=== PATIENT | female | born 1975 | race Caucasian/White ===

== ENCOUNTER 2024-11-14 17:58 | Observation (INO) | payer OTHER ==
--- NOTE | 2024-11-14 19:48 | ED ---
General Adult HPI - General Chief complaint: Overdose Stated complaint: Mental Health Eval. Time Seen by Provider: 11/14/24 19:15 Source: patient Mode of arrival: EMS - History of Present Illness Initial comments: Patient is a 48-year-old female with past medical history of depression presenting today for intentional overdose. She says that she had a stressful day today and just wanted to sleep took "a handful" of 25 mg hydroxyzine tablets as well as a handful of ketorolac tablets. Has additional coingestions such as Tylenol or [place]. Also drank 1/2 pint of vodka earlier today. She does have history of prior suicide attempts. She denies HI, auditory or visual hallucin ations. Denies dizziness or lightheadedness, headaches, numbness or tingling, abdominal pain nausea or vomiting. Denies chest pain or shortness of breath. Currently denies additional complaints. - Related Data Home Medications Medication Instructions Recorded Confirmed Atorvastatin [Lipitor] 20 mg PO DAILY 11/15/24 11/15/24 Multivit with Calcium,Iron,Min 1 tab PO DAILY 11/15/24 11/15/24 [Women's Multivitamin] Sertraline [Zoloft] 50 mg PO DAILY 11/15/24 11/15/24 traZODone HCL 100 mg PO HS PRN 11/15/24 11/15/24 Allergies Allergy/AdvReac Type Severity Reaction Status Date / Time No Known Allergies Allergy Verified 11/15/24 18:13 Review of Systems ROS Statement: Those systems with pertinent positive or pertinent negative responses have been documented in the HPI. ROS Other: All systems not noted in ROS Statement are negative. Past Medical History Additional Past Medical History / Comment(s): immunocompromised History of Any Multi-Drug Resistant Organisms: None Reported Past Surgical History: Appendectomy, Section, Hysterectomy Past Psychological History: ADD/ADHD Smoking Status: Current every day smoker Past Alcohol Use History: Daily, Heavy Past Drug Use History: Marijuana General Exam - General Exam Comments Initial Comments: PE: CONSTITUTIONAL: No apparent distress, well appearing SKIN: Warm, dry, no jaundice, hives or petechiae EYES: Pupils are equally round, extraocular movements intact without nystagmus, clear conjunctiva, non-icteric sclera HENT: Normocephalic, atraumatic, moist mucus membranes, oropharynx clear without exudates NECK: , Full range of motion, normal appearance PULMONARY: Clear to auscultation without wheezes, rhonchi, or rales, normal excursion, no accessory muscle use and no stridor CARDIOVASCULAR: Regular rate, rhythm, normal S1 and S2. No appreciated murmurs, rubs or gallops. Strong radial pulses with intact distal perfusion. No lower extremity edema GASTROINTESTINAL: Soft, active bowel sounds throughout, non-tender, non-d istended, no palpable masses, no rebound or guarding. No hepatosplenomegaly MUSCULOSKELETAL: Extremities have no gross deformity, no edema, redness, or swelling. NEUROLOGIC:_a/o x 3, GCS 15, normal mentation and speech. Moves all extremities x 4 without motor or sensory deficit, no clonus or rigidity PSYCHIATRIC:_withdrawn mood and affect, thought process is clear and linear, denies SI/HI, states she "just wanted to sleep", does not appear to be responding to internal stimuli Course Vital Signs 11/14/24 11/14/24 11/14/24 18:02 18:09 19:48 Temperature 98.4 F 97.8 F Pulse Rate 84 107 H 76 Respiratory 16 15 18 Rate Blood Pressure 148/89 137/87 145/97 O2 Sat by Pulse 96 98 99 Oximetry 11/14/24 11/15/24 11/15/24 23:23 04:53 06:00 Temperature Pulse Rate 82 66 61 Respiratory 17 17 15 Rate Blood Pressure 121/66 133/64 O2 Sat by Pulse 96 97 98 Oximetry EKG Findings - EKG Comments: EKG Findings:: Sinus rhythm, rate of beats per minute, intervals within acceptable limits, normal axis, no ST elevations or depressions, no arrhythmia Medical Decision Making - Medical Decision Making Was pt. sent in by a medical professional or institution (, PA, [employer]AR[employer], urgent care, hospital, or group home...) When possible be specific @ -[No] Did you speak to anyone other than the patient for history (EMS, parent, family, police, friend...)? What history was obtained from this source @ -[No] Did you review nursing and triage notes (agree or disagree)? Why? @ -[I reviewed nursing and triage notes] Were old charts reviewed (outside hosp., previous admission, EMS record, old EKG, old radiological studies, urgent care reports/EKG's, group home records)? Report findings @ -[Medical records reviewed] Differential Diagnosis (chest pain, altered mental status, abdominal pain women, abdominal pain men, vaginal bleeding, weakness, fever, dyspnea, syncope, headache, dizziness, GI bleed, back pain, seizure, CVA, palpatations, mental health, musculoskeletal)? @ -[not applicable] EKG interpreted by me (3pts min.). @ -[As above] X-rays interpreted by me (1pt min.). @ -[None done] CT interpreted by me (1pt min.). @ -[None done] U/S interpreted by me (1pt. min.). @ -[None done] What testing was considered but not performed or refused? (CT, X-rays, U/S, labs)? Why? @ -[None] What meds were considered but not given or refused? Why? @ -[None] Did you discuss the management of the patient with other professionals (professionals i.e. , PA, [employer]AR[employer]DEL MAKER, lab, RT, psych nurse, social insurance administrator, bench carpenter, teacher, administrative officer, case planner)? Give summary @ -[No] Was smoking cessation discussed for >3mins.? @ -[No] Was critical care preformed (if so, how long)? @ -[No] Were there social determinants of health that impacted care today? How? (Homelessness, low income, unemployed, alcoholism, drug addiction, transportation, low edu. Level, literacy, decrease access to med. care, prison, rehab)? @ -[No] Was there de-escalation of care discussed even if they declined (Discuss DNR or withdrawal of care, Hospice)? @ -[No] What co-morbidities impacted this encounter? (DM, HTN, Smoking, COPD, CAD, Cancer, CVA, ARF, Chemo, Hep., AIDS, mental health diagnosis, sleep apnea, morbid obesity)? @ -[None] Was patient admitted / discharged? Hospital course, mention meds given and route, prescriptions, significant lab abnormalities, going to OR and other pertinent info. @Admission- patient is a 48-year-old female presenting today for intentional medication overdose. Took a "handful" of 25 mg hydroxyzine, ketorolac. Drink half pint of vodka prior to arrival. Stating she just wants to sleep. Denies SI or HI. We will medically clear the patient, obtain toxicology labs, EKG and reassess. Case was discussed with poison control, they recommended obtaining VBG in addition to the labs already ordered as well as an 8 to 10-hour observation period to ensure no development of anticholinergic toxicity. Additionally recommended a bladder scan to ensure no urinary retention. Labs and imaging reviewed. Grossly within normal limits. Abnormal values not concerning for acute pathology related to presenting complaint. Of note potassium was 3.1. Replacement ordered. Postvoid bladder scan showed 21 cc in the bladder. On my reassessment patient is not displaying signs of anticholinergic toxicity, she is awake and alert, pupils are not dilated, she is behaving appropriately. She had no clonus on exam. Discussed with patient plan for admission for observation, to which she was agreeable. Suicide precautions placed. Psychiatry consulted. Case was discussed with RAMIN Mcnally who kindly excepted patient for admission. Undiagnosed new problem with uncertain prognosis? @ -[No] Drug Therapy requiring intensive monitoring for toxicity (Heparin, Nitro, Insulin, Cardizem)? @ -[No] Were any procedures done? @ -[No] Diagnosis/symptom? @Intentional medication overdose Acute, or Chronic, or Acute on Chronic? @Acute Uncomplicated (without systemic symptoms) or Complicated (systemic symptoms)? @ -Complicated Side effects of treatment? @ -[No] Exacerbation, Progression, or Severe Exacerbation? @ -[No] Poses a threat to life or bodily function? How? (Chest pain, USA, NM, pneumonia, PE, COPD, DKA, ARF, appy, cholecystitis, CVA, Diverticulitis, Homicidal, Suicidal, threat to staff... and all critical care pts) @ -Yes - Lab Data Result diagrams: 11/14/24 20:41 11/15/24 06:39 Lab Results 11/14/24 11/14/24 11/14/24 Range/Units 20:41 20:41 21:21 WBC 7.57 (4.50-10.00) 10*3/uL RBC 4.41 (4.10-5.20) 10*6/uL Hgb 14.5 (12.0-15.0) g/dL Hct 40.3 (37.2-46.3) % MCV 91.4 (80.0-97.0) fL MCH 32.9 H (27.0-32.0) pg MCHC 36.0 (32.0-37.0) g/dL Plt Count 329 (140-440) 10*3/uL MPV 9.0 L (9.5-12.2) fL Immature Gran % (Auto) 0.3 % Neutrophils % 46.2 % Lymphocytes % 43.3 % Monocytes % 7.9 % Eosinophils % 1.8 % Basophils % 0.5 % Immature Gran # 0.02 (0.00-0.04) 10*3/uL Neutrophils # 3.49 (1.80-7.70) 10*3/uL Lymphocytes # 3.28 (0.90-5.00) 10*3/uL Monocytes # 0.60 (0.20-1.00) 10*3/uL Eosinophils # 0.14 (0.04-0.35) 10*3/uL Basophils # 0.04 (0.00-0.10) 10*3/uL VBG pH (7.31-7.41) VBG pCO2 (37-51) mmHg VBG HCO3 (24-28) mmol/L Sodium 137 (137-145) mmol/L Potassium 3.1 L (3.5-5.1) mmol/L Chloride 109 H (98-107) mmol/L Carbon Dioxide 17 L (22-30) mmol/L Anion Gap 11 mmol/L BUN 7 (7-17) mg/dL Creatinine 0.51 L (0.52-1.04) mg/dL Est GFR (CKD-EPI)AfAm >90 (>60 ml/min/1.73 sqM) Est GFR (CKD-EPI)NonAf >90 (>60 ml/min/1.73 sqM) Glucose 90 (74-99) mg/dL Calcium 8.5 (8.4-10.2) mg/dL Total Bilirubin 0.7 (0.2-1.3) mg/dL AST 28 (14-36) U/L ALT 15 (4-34) U/L Alkaline Phosphatase 89 (38-126) U/L Total Protein 6.3 (6.3-8.2) g/dL Albumin 3.6 (3.5-5.0) g/dL Urine Color Colorless Urine Appearance Clear (Clear) Urine pH 6.0 (5.0-8.0) Ur Specific [place] 1.004 (1.001-1.035) Urine Protein Negative (Negative) Urine Glucose (UA) Negative (Negative) Urine Ketones Negative (Negative) Urine Blood Negative (Negative) Urine Nitrite Negative (Negative) Urine Bilirubin Negative (Negative) Urine Urobilinogen <2.0 (<2.0) mg/dL Ur Leukocyte Esterase Negative (Negative) Urine HCG, Qual (Not Detectd) Salicylates <1.0 mg/dL Urine Opiates Screen Not Detected (NotDetected) Ur Oxycodone Screen Not Detected (NotDetected) Urine Methadone Screen Not Detected (NotDetected) Acetaminophen <10.0 ug/mL Ur Barbiturates Screen Not Detected (NotDetected) U Tricyclic Antidepress Not Detected (NotDetected) Ur Phencyclidine Scrn Not Detected (NotDetected) Ur Amphetamines Screen Not Detected (NotDetected) U Methamphetamines Scrn Not Detected (NotDetected) U Benzodiazepines Scrn Not Detected (NotDetected) Urine Cocaine Screen Not Detected (NotDetected) U Marijuana (THC) Screen Detected H (NotDetected) Serum Alcohol 21 mg/dL 11/14/24 11/14/24 Range/Units 21:21 21:28 WBC (4.50-10.00) 10*3/uL RBC (4.10-5.20) 10*6/uL Hgb (12.0-15.0) g/dL Hct (37.2-46.3) % MCV (80.0-97.0) fL MCH (27.0-32.0) pg MCHC (32.0-37.0) g/dL Plt Count (140-440) 10*3/uL MPV (9.5-12.2) fL Immature Gran % (Auto) % Neutrophils % % Lymphocytes % % Monocytes % % Eosinophils % % Basophils % % Immature Gran # (0.00-0.04) 10*3/uL Neutrophils # (1.80-7.70) 10*3/uL Lymphocytes # (0.90-5.00) 10*3/uL Monocytes # (0.20-1.00) 10*3/uL Eosinophils # (0.04-0.35) 10*3/uL Basophils # (0.00-0.10) 10*3/uL VBG pH 7.48 H (7.31-7.41) VBG pCO2 31 L (37-51) mmHg VBG HCO3 23 L (24-28) mmol/L Sodium (137-145) mmol/L Potassium (3.5-5.1) mmol/L Chloride (98-107) mmol/L Carbon Dioxide (22-30) mmol/L Anion Gap mmol/L BUN (7-17) mg/dL Creatinine (0.52-1.04) mg/dL Est GFR (CKD-EPI)AfAm (>60 ml/min/1.73 sqM) Est GFR (CKD-EPI)NonAf (>60 ml/min/1.73 sqM) Glucose (74-99) mg/dL Calcium (8.4-10.2) mg/dL Total Bilirubin (0.2-1.3) mg/dL AST (14-36) U/L ALT (4-34) U/L Alkaline Phosphatase (38-126) U/L Total Protein (6.3-8.2) g/dL Albumin (3.5-5.0) g/dL Urine Color Urine Appearance (Clear) Urine pH (5.0-8.0) Ur Specific [place] (1.001-1.035) Urine Protein (Negative) Urine Glucose (UA) (Negative) Urine Ketones (Negative) Urine Blood (Negative) Urine Nitrite (Negative) Urine Bilirubin (Negative) Urine Urobilinogen (<2.0) mg/dL Ur Leukocyte Esterase (Negative) Urine HCG, Qual Not Detected (Not Detectd) Salicylates mg/dL Urine Opiates Screen (NotDetected) Ur Oxycodone Screen (NotDetected) Urine Methadone Screen (NotDetected) Acetaminophen ug/mL Ur Barbiturates Screen (NotDetected) U Tricyclic Antidepress (NotDetected) Ur Phencyclidine Scrn (NotDetected) Ur Amphetamines Screen (NotDetected) U Methamphetamines Scrn (NotDetected) U Benzodiazepines Scrn (NotDetected) Urine Cocaine Screen (NotDetected) U Marijuana (THC) Screen (NotDetected) Serum Alcohol mg/dL Disposition Clinical Impression: Intentional drug overdose Disposition: ADMITTED IP TO THIS HOSP Condition: Stable
[2024-11-14 20:47] LABS: Basophils # (A) 0.04 10*3/uL (0.00-0.10); Basophils % (A) 0.5 %; Eosinophils # (A) 0.14 10*3/uL (0.04-0.35); Eosinophils % (A) 1.8 %; HCT 40.3 % (37.2-46.3); HGB 14.5 g/dL (12.0-15.0); Lymphocytes # (A) 3.28 10*3/uL (0.90-5.00); Lymphocytes % (A) 43.3 %; MCH 32.9 pg (27.0-32.0); MCV 91.4 fL (80.0-97.0); Monocytes % (A) 7.9 %; Neutrophils # (A) 3.49 10*3/uL (1.80-7.70); Neutrophils % (A) 46.2 %; Platelet Count 329 10*3/uL (140-440); RBC 4.41 10*6/uL (4.10-5.20); RDW 12.4 % (11.5-14.5); WBC 7.57 10*3/uL (4.50-10.00)
[2024-11-14 21:07] LABS: ALT 15 U/L (4-34); Acetaminophen <10.0 ug/mL; African American GFR (CKD) >90 (>60 ml/min/1.73 sqM); Albumin 3.6 g/dL (3.5-5.0); Alcohol 21 mg/dL; Anion Gap 11 mmol/L; Blood Urea Nitrogen 7 mg/dL (7-17); Calcium 8.5 mg/dL (8.4-10.2); Carbon Dioxide 17 mmol/L (22-30); Chloride 109 mmol/L (98-107); Glucose 90 mg/dL (74-99); Non-African American GFR(CKD) >90 (>60 ml/min/1.73 sqM); Salicylate <1.0 mg/dL; Sodium 137 mmol/L (137-145); Total Bilirubin 0.7 mg/dL (0.2-1.3); Total Protein 6.3 g/dL (6.3-8.2)
[2024-11-14 21:14] LABS: AST 28 U/L (14-36); Alkaline Phosphatase 89 U/L (38-126); Potassium 3.1 mmol/L (3.5-5.1)
[2024-11-14 21:35] LABS: Appearance,Urine Clear (Clear); Bilirubin,Urine Negative (Negative); Blood,Urine Negative (Negative); Color,Urine Colorless; Glucose,Urine (UA) Negative (Negative); Ketones,Urine Negative (Negative); Leukocyte Esterase,Urine Negative (Negative); Nitrite,Urine Negative (Negative); Protein,Urine Negative (Negative); Specific Gravity,Urine 1.004 (1.001-1.035); Urobilinogen,Urine <2.0 mg/dL (<2.0)
[2024-11-14 21:46] LABS: Amphetamine Screen,Urine Not Detected (NotDetected); Barbiturate Screen,Urine Not Detected (NotDetected); Benzodiazepines Screen,Urine Not Detected (NotDetected); Cocaine Screen,Urine Not Detected (NotDetected); Methadone Screen, Urine Not Detected (NotDetected); Opiate Screen,Urine Not Detected (NotDetected); Oxycodone Screen, Urine Not Detected (NotDetected); Phencyclidine Screen,Urine Not Detected (NotDetected); Tricyclic Antidepressant,Urine Not Detected (NotDetected); Urn Cannabinoid Scrn Detected (NotDetected)
[2024-11-14 21:55] LABS: VBG PH 7.48 (7.31-7.41)
[2024-11-14] MEDS ORDERED: NALOXONE 0.4 MG/ML 1 ML VIAL IV PRN (22:23)
[2024-11-14] MEDS ORDERED: ALPRAZolam 0.25 MG TAB PO PRN (22:23)
[2024-11-14] MEDS ORDERED: MAG HYDROX/AL HYDROX/SIMETH 30 ML CUP PO PRN (22:23)
[2024-11-14] MEDS ORDERED: ACETAMINOPHEN TAB 325 MG TAB PO PRN (22:23)
[2024-11-14] MEDS ORDERED: CALCIUM CARBONATE 500 MG CHEWABLE PO PRN (22:23)
[2024-11-14] MEDS: THIAMINE 100 MG/ML 2 ML VIAL IVP SCH (23:26)
[2024-11-14] MEDS: POTASSIUM BICARBONATE/CIT AC 20 MEQ TABLET.EFF PO ONE (23:28)
[2024-11-14 23:36] LABS: Glucose,Whole Blood 139 mg/dL (70-110)
[2024-11-15] MEDS: ENOXAPARIN 40 MG/0.4 ML SYRINGE SQ SCH (08:41)
[2024-11-15] MEDS: FAMOTIDINE 20 MG TAB PO SCH (08:41)
[2024-11-15] MEDS: THIAMINE 500 MG in SODIUM CHLORIDE 0.9% 50 ML IVPB SCH (09:08)
[2024-11-15 09:19] VITALS: RESP 16; TEMP 98
[2024-11-15 11:54] VITALS: BP 122/73; PULSE 63
--- NOTE | 2024-11-15 14:12 | P.CN ---
Psychiatric Consult - . Consult date: 11/15/24 Consult:: 11/15/24 13:25 IDENTIFYING DATA: This patient is a 48-year-old female, she is currently engaged she lives with her fianc in a motel, she has 2 kids, she is unemployed REASON FOR REFERRAL: Psychiatry was consulted for SI HISTORY OF PRESENT ILLNESS: The patient presented to the hospital initially on 11/14 after an intentional overdose. Patient apparently has a history of mental health and also previous suicide attempts. Patient apparently told staff that she took a handful of her hydroxyzine and Toradol and also was drinking alcohol. Patient's urine drug screen is positive for THC, blood alcohol level was 21. Patient was seen at the bedside today she had a one-to-one sitter. She claims that she apparently "had too much to drink" and states that she was feeling drunk. Claims that she took a handful of her anxiety medications and was not "paying attention". Claims that she is also drinking about a pint of liquor at that time. She claims that her boyfriend was concerned about her and called the EMS to bring her to the hospital. She claims that she has been having more stress lately dealing with the court transcriber for custody issues and also the fact that she is homeless. Claims that she relapsed on alcohol a couple of days ago, not reporting any significant withdrawal symptoms at this time. She was minimizing the suicide attempt and minimizing her need for psychiatric hospitalization, was insisting that she be discharged back home. At this time patient denies any current suicidal or homical ideations, intent or plan. Patient denies any auditory, visual hallucinations and denies any paranoia or delusions. Patients admits to using alcohol as noted above, claims that she smokes THC from a vape, also smokes cigarettes. PAST PSYCHIATRIC HISTORY: Patient has a a history of depression and suicide attempts. Claims that she was previously on trazodone and Vistaril, used to follow-up at [facility] however claims that her case has been closed out and she is trying to transfer to the [facility]. Claims that she was last psychiatrically admitted and July 2024 in the hospital in [place]. Claims that she did have a overdose suicide attempt quite sometime ago. Additional Past Medical History / Comment(s): immunocompromised History of Any Multi-Drug Resistant Organisms: None Reported Past Surgical History: Appendectomy, Section, Hysterectomy Past Psychological History: ADD/ADHD Smoking Status: Current every day smoker Past Alcohol Use History: Daily, Heavy Past Drug Use History: Marijuana ALLERGIES: as per EMR. CHEMICAL DEPENDENCY HISTORY: as per HPI. FAMILY PSYCHIATRIC/SUBSTANCE USE HISTORY: Denies SOCIAL HISTORY: Patient was born and raised in [place]. Claims that she completed high school and did some college. States that she worked several jobs in the past. Currently unemployed. Claims that she is currently engaged lives with her fianc in a motel, she has 2 kids. MENTAL STATUS EXAM: General Appearance: Patient appears to be older than stated age is alert, pleasant however minimizing and deceptive. Patient appears to have fair hygiene and grooming wearing hospital gown with fair eye contact. Behavior: Patient is calmly lying in bed without any agitated behavior. Minimizing, guarded Speech: Patient's speech is fluent and nonpressured. Mood/Affect: Patient reports their mood is "depressed", affect is congruent Suicidality/Homicidality: Patient denies having any suicidal or homicidal ideation intent or plan. Perceptions: Patient denies any visual hallucinations and denies any auditory hallucinations Though content/process: There is no evidence of any delusional thought content and thought process is linear and goal-directed. Minimizing, focused on discharge, deceptive Memory and concentration: AOX3, grossly intact for the purposes of this session. Can spell "WORLD" backwards Judgment and insight: Poor IMPRESSIONS: Depressive disorder unspecified Suicide attempt by overdose of psychotropic medications Alcohol abuse Cannabis use disorder Nicotine dependence PLAN: -At this time patient DOES meet criteria for inpatient psychiatric admission. -Would recommend the following medication changes/additions: Will hold off on psychiatric medications until patient is admitted to the mental health unit. -CIWA protocol with PRN Ativan for alcohol withdrawal. Continue to monitor vital signs. -Continue 1:1 sitter for safety until patient is safely transferred to the mental health unit -Cannot leave AMA at this time. Patient will need a petition and certification if attempting to leave AMA. -Cooling Pan Tender spoke with patient about substance abuse and the harmful effects on medical and mental health, patient verbally understood and agreed. -When medically stable, patient is eligible for transfer to a psych bed when available. -Communicated plan to patient's nurse -Psychiatry will sign off at this time -Please contact with any questions. 11/15/24 14:06
--- NOTE | 2024-11-16 01:04 | HP ---
HISTORY AND PHYSICAL This is a combined history and physical and discharge summary. CHIEF COMPLAINT: Overdose and depression. HISTORY OF PRESENT ILLNESS: This is a 48-year-old woman with a past medical history of multiple medical problems including depression, had intentional overdoses. The patient felt dizzy, once asleep and the patient has taken a handful of hydroxyzine and Toradol. Currently, the patient is closely monitored. No chest pain. No palpitations. No fever. I would recommend psychiatric consultation if psychiatry is cleared. The patient will be transferred to inpatient psych for further evaluation and treatment. PAST MEDICAL HISTORY: Reviewed include immunosuppression, appendectomy, ADD, ADHD. HOME MEDICATIONS: Reviewed include Lipitor. Dose and rest of medications reviewed. ALLERGIES: None. FAMILY HISTORY: No history of heart disease or strokes in the family. SOCIAL HISTORY: No history of alcohol, THC, smoking. REVIEW OF SYSTEMS: Fourteen-point review of systems negative except as mentioned earlier. PHYSICAL EXAMINATION: Pulse is 69, blood pressure 147/82, respirations 16. HEENT: Conjunctivae normal. Oral mucosa moist. NECK: No jugular venous distention. No carotid bruit. CARDIOVASCULAR: S1, S2 muffled. RESPIRATION: Breath sounds diminished at the bases. No rhonchi. No crackles. ABDOMEN: Soft, nontender. LEGS: No edema. No swelling. NERVOUS SYSTEM: No focal deficit. LABORATORY DATA: Potassium 3.1, CO2 is 17. Otherwise, the labs are noted. ASSESSMENT: 1. Status post overdosage and suicidal attempt. 2. Depression. 3. History of nicotine dependence. 4. History of polysubstance abuse. 5. Immunosuppression. 6. Hyperlipidemia. 7. Hypokalemia. RECOMMENDATIONS AND DISCUSSION: This is a 48-year-old woman, who presented with multiple complex medical issues. We will monitor the patient closely. I would recommend resume the home medications. I will also recommend repeat labs in the morning. CIWA protocol p.r.n. for alcohol withdrawal and recommend close followup with primary physician after discharge. This patient will be transferred to inpatient psych for further evaluation and treatment. MMKEYANAL / SERGION: [id number] /
== END 2024-11-15 17:07 ==
LOC: EC 17:58 → 5NMEDONC 22:23
PROVIDERS: ADMIT Hospitalist; ATTEND Hospitalist
DX: T43.592A Poisoning by other antipsychotics and neuroleptics, intentional self-harm, initial encounter (principal); T39.8X2A Poisoning by other nonopioid analgesics and antipyretics, not elsewhere classified, intentional self-harm, initial encounter; F32.A Depression, unspecified; E87.6 Hypokalemia; F10.90 Alcohol use, unspecified, uncomplicated; Y90.1 Blood alcohol level of 20-39 mg/100 ml; F12.10 Cannabis abuse, uncomplicated; D84.9 Immunodeficiency, unspecified; E78.5 Hyperlipidemia, unspecified; F17.210 Nicotine dependence, cigarettes, uncomplicated; Z79.899 Other long term (current) drug therapy; Z74.3 Need for continuous supervision; Z91.51 Personal history of suicidal behavior; Z56.0 Unemployment, unspecified; Z59.01 Sheltered homelessness
CPT/HCPCS: 96372; 82075; 96374; 99285; 51798; 36415; 93005 ×2; 80053; 82803; 84132; 85025; 81003; 81025; 80306; 80143; 87635; 80179; G0378 ×2; G0480; J3411 ×2; J1650; 80320

== ENCOUNTER 2024-11-15 16:26 | Inpatient (IN) | payer MEDICAID, OTHER ==
[2024-11-15] MEDS ORDERED: IBUPROFEN 600 MG TAB PO PRN (16:32)
[2024-11-15] MEDS ORDERED: HALOPERIDOL LACTATE 5 MG/ML 1 ML VIAL IM PRN (16:32)
[2024-11-15] MEDS ORDERED: LORazepam 2 MG/ML INJ IM PRN (16:32)
[2024-11-15] MEDS ORDERED: MAG HYDROX/AL HYDROX/SIMETH 355 ML BOTTLE PO PRN (16:32)
[2024-11-15] MEDS ORDERED: MAGNESIUM HYDROXIDE 2,400 MG/30 ML CUP PO PRN (16:32)
[2024-11-15] MEDS: MELATONIN 5 MG TABLET PO PRN (21:13)
[2024-11-16 00:25] LABS: Glucose,Whole Blood 112 mg/dL (70-110)
[2024-11-16] MEDS: haloperidoL 5 MG TAB PO PRN (00:26)
[2024-11-16] MEDS: LORazepam 1 MG TAB PO PRN (00:26)
[2024-11-16] MEDS: MULTIVITAMINS, THERA 1 EACH TAB PO SCH (08:50)
[2024-11-16] MEDS: FOLIC ACID 1 MG TAB PO SCH (08:50)
[2024-11-16] MEDS: THIAMINE 100 MG TAB PO SCH (08:50)
[2024-11-16] MEDS: NICOTINE 14MG/24HR PATCH TRANSDERM SCH (08:51)
--- NOTE | 2024-11-16 13:30 | P.HP ---
Psychiatric H&P - . H&P Date: 11/16/24 History & Physical: Allergies Allergy/AdvReac Type Severity Reaction Status Date / Time No Known Allergies Allergy Verified 11/15/24 18:13 Vital Signs Temp 98.1 F 11/16/24 09:00 Pulse 75 11/16/24 09:00 Resp 16 11/16/24 09:00 BP 132/82 11/16/24 09:00 Pulse Ox 100 11/16/24 09:00 FiO2 Intake & Output 11/15/24 11/16/24 11/16/24 18:59 06:59 18:59 Weight 64.552 kg Laboratory Last Values POC Glucose (mg/dL) 112 mg/dL (70-110) H 11/16/24 00:15 POC Glu Ware[employer] Associate Driver ID Jerry Leone 11/16/24 00:15 TSH 0.662 mIU/L (0.465-4.680) 11/16/24 12:00 11/16/24 13:14 IDENTIFYING DATA: This patient is a 48-year-old female, she is currently engaged she lives with her fianc in a motel, she has 2 kids, she is unemployed HISTORY OF PRESENT ILLNESS: Patient was seen initially by life insurance underwriter for psychiatric consultation on 11/15 and as per note "the patient presented to the hospital initially on 11/14 after an intentional overdose. Patient apparently has a history of mental health and also previous suicide attempts. Patient apparently told staff that she took a handful of her hydroxyzine and Toradol and also was drinking alcohol. Patient's urine drug screen is positive for THC, blood alcohol level was 21. Patient was seen at the bedside today she had a one-to-one sitter. She claims that she apparently "had too much to drink" and states that she was feeling drunk. Claims that she took a handful of her anxiety medications and was not "paying attention". Claims that she is also drinking about a pint of liquor at that time. She claims that her boyfriend was concerned about her and called the EMS to bring her to the hospital. She claims that she has been having more stress lately dealing with the court recording monitor for custody issues and also the fact that she is homeless. Claims that she relapsed on alcohol a couple of days ago, not reporting any significant withdrawal symptoms at this time. She was minimizing the suicide attempt and minimizing her need for psychiatric hospitalization, was insisting that she be discharged back home. At this time patient denies any current suicidal or homical ideations, intent or plan. Patient denies any auditory, visual hallucinations and denies any paranoia or delusions. Patients admits to using alcohol as noted above, claims that she smokes THC from a vape, also smokes cigarettes." Patient was seen today for psychiatric evaluation on the unit. Patient continues to be fairly pleasant with life insurance underwriter, explains that it was a bad situation as she put herself into and he could have been deadly. Explains that she is agreeable to continuing with treatment signed voluntary. Claims that her mood and anxiety been improving since being on the unit, denying any severe withdrawal symptoms at this time. She was agreeable to try Zoloft and was previously on trazodone which has helped her. Claims that her sleep and appetite are on and off. At this time is denying any suicidal homicidal ideations intent or plan denying any auditory or visual hallucinations. The rest of the past psychiatric and social history been taking from the consultation note. PAST PSYCHIATRIC HISTORY: Patient has a a history of depression and suicide attempts. Claims that she was previously on trazodone and Vistaril, used to follow-up at [facility] however claims that her case has been closed out and she is trying to transfer to the [facility]. Claims that she was last psychiatrically admitted and July 2024 in the hospital in [place]. Claims that she did have a overdose suicide attempt quite sometime ago. Additional Past Medical History / Comment(s): immunocompromised History of Any Multi-Drug Resistant Organisms: None Reported Past Surgical History: Appendectomy, Section, Hysterectomy Past Psychological History: ADD/ADHD Smoking Status: Current every day smoker Past Alcohol Use History: Daily, Heavy Past Drug Use History: Marijuana ALLERGIES: as per EMR. CHEMICAL DEPENDENCY HISTORY: as per HPI. FAMILY PSYCHIATRIC/SUBSTANCE USE HISTORY: Denies SOCIAL HISTORY: Patient was born and raised in [place] [facility] [facility]. Claims that she completed high school and did some college. States that she worked several jobs in the past. Currently unemployed. Claims that she is currently engaged lives with her fianc in a motel, she has 2 kids. MENTAL STATUS EXAM: General Appearance: Patient appears to be older than stated age is alert, pleasant however minimizing and deceptive. Patient appears to have fair hygiene and grooming wearing hospital gown with fair eye contact. Behavior: Patient is calmly lying in bed without any agitated behavior. More pleasant today and attempts to cooperate Speech: Patient's speech is fluent and nonpressured. Mood/Affect: Patient reports their mood is "a bit better", affect is congruent Suicidality/Homicidality: Patient denies having any suicidal or homicidal ideation intent or plan. Perceptions: Patient denies any visual hallucinations and denies any auditory hallucinations Though content/process: There is no evidence of any delusional thought content and thought process is linear and goal-directed. Less minimizing today. Less focused on discharge Memory and concentration: AOX3, grossly intact for the purposes of this session. Can spell "WORLD" backwards Judgment and insight: Poor, improving mildly STRENGTHS/WEAKNESSES: strength is that patient is resilient. Weakness is that patient has poor judgment and is impulsive INTELLECT: Average IMPRESSIONS: Depressive disorder unspecified Suicide attempt by overdose of psychotropic medications Alcohol abuse Cannabis use disorder Nicotine dependence PLAN: -Patient is admitted under voluntary status to [facility] for stabilization of psychiatric symptoms and safety. Patient has signed adult voluntary form and has signed medication consent and is placed in patient's chart. -Medications : Zoloft 50 mg daily for mood/anxiety, trazodone 50 mg nightly for mood/insomnia. -Ativan and Haldol PRN for agitation/aggression -Started thiamine, MVM for etoh use -CIWA protocol with Ativan PRN for ETOH withdrawal. -Patient was counselled on substance abuse and desired to cut back on use. Will offer patient subtance use rehab -Patient was informed of the risks, benefits and side effects of the medications and patient verbally consented to taking the medications. Patient signed med consent form and was placed in chart. Patient was offered medication information and declined it -Internal Medicine consult to perform medical evaluation and physical. -NRT -nicotine patch -SW on board for discharge planning. Encourage patient to participate in groups to work on coping skills.
[2024-11-16] MEDS: SERTRALINE 50 MG TAB PO SCH (14:46)
[2024-11-16] MEDS: NICOTINE GUM (POLACRILEX) 2 MG GUM BUCCAL PRN (20:58)
[2024-11-16] MEDS: traZODone HCL 50 MG TAB PO SCH (20:58)
[2024-11-17 00:27] LABS: LDL Cholesterol,Calculated 101.2 mg/dL (0.0-131.0)
[2024-11-17 02:50] LABS: Glucose,Whole Blood 128 mg/dL (70-110)
[2024-11-17] MEDS: LORazepam 1 MG TAB PO PRN (02:54)
--- NOTE | 2024-11-17 12:33 | P.PN ---
Progress Note - Text Progress Note Date: 11/17/24 Interval history: Patient was seen today wandering the hallways agreeable to speak to parts data writer. She appears to be more appropriate today, more brighter during interaction. Claims that she is finding the groups helpful with regards to her alcohol use. Claims that she has been participating in sleep with others. Claims that she is feeling a bit better with regards to her mood and anxiety. She did state that she found it difficult to sleep last night and was feeling fairly restless, she required a Ativan to help her with sleep. Is stating that she has mild withdrawal symptoms at this time. Was agreeable to try Remeron instead for sleep tonight. She remains future oriented, fairly polite during interaction. At this time she is denying any suicidal homicidal ideations intent or plan denying any auditory or visual hallucinations. Mental status exam: General Appearance: Patient appears to be has stated age is alert, directable, and cooperative. Behavior: No agitated behavior. Patient is calm and directable Speech: Patient's speech is fluent and nonpressured. Mood/Affect: Mood is improving mildly, affect is congruent and constricted. Suicidality/Homicidality: Patient denies having any suicidal or homicidal ideation intent or plan. Perceptions: Patient denies any auditory or visual hallucinations. Though content/process: There is no evidence of any delusional thought content and thought process is linear and goal-directed. More future oriented Memory and concentration: AOX3, grossly intact for the purposes of this session Judgment and insight: improving mildly Assessment/Plan: Continue with current diagnosis. Patient continues to meet criteria for inpatient psychiatric admission for symptom stabilization and safety. Patient will be maintained on current psychotropic medication regimen, discontinue trazodone due to reported intolerance for replaced with Remeron 15 mg nightly. Monitor for medication compliance and for any psychotropic medication side effects. Will continue to monitor ongoing response to treatment. Encouraged participation in milieu. Hopeful for discharge Monday if patient is improving. Will offer rehab
[2024-11-17] MEDS ORDERED: LOPERAMIDE 2 MG CAP PO PRN (14:14)
[2024-11-17 15:44] LABS: Basophils # (A) 0.06 10*3/uL (0.00-0.10); Basophils % (A) 0.7 %; Eosinophils # (A) 0.15 10*3/uL (0.04-0.35); Eosinophils % (A) 1.8 %; HGB 13.8 g/dL (12.0-15.0); Lymphocytes # (A) 2.69 10*3/uL (0.90-5.00); Lymphocytes % (A) 31.7 %; MCH 32.9 pg (27.0-32.0); MCHC 34.5 g/dL (32.0-37.0); MCV 95.2 fL (80.0-97.0); Mean Platelet Volume 9.2 fL (9.5-12.2); Monocytes # (A) 0.65 10*3/uL (0.20-1.00); Monocytes % (A) 7.7 %; Neutrophils # (A) 4.91 10*3/uL (1.80-7.70); Neutrophils % (A) 57.9 %; Platelet Count 357 10*3/uL (140-440); RDW 12.5 % (11.5-14.5); WBC 8.48 10*3/uL (4.50-10.00)
[2024-11-17 15:58] LABS: African American GFR (CKD) >90 (>60 ml/min/1.73 sqM); Anion Gap 7 mmol/L; Blood Urea Nitrogen 12 mg/dL (7-17); Calcium 9.7 mg/dL (8.4-10.2); Carbon Dioxide 26 mmol/L (22-30); Chloride 104 mmol/L (98-107); Glucose 138 mg/dL (74-99); Non-African American GFR(CKD) >90 (>60 ml/min/1.73 sqM); Potassium 4.4 mmol/L (3.5-5.1); Sodium 137 mmol/L (137-145)
[2024-11-17] MEDS: MIRTAZAPINE 15 MG TAB PO SCH (20:57)
[2024-11-17] MEDS: ACETAMINOPHEN TAB 325 MG TAB PO PRN (20:58)
--- NOTE | 2024-11-18 03:00 | CONS ---
CONSULTATION REASON FOR CONSULTATION: The patient presents with diarrhea and other medical issues, requested by psychiatrist. HISTORY OF PRESENT ILLNESS: This is a 48-year-old woman with a past medical history of multiple medical problems admitted with overdose and depression, was evaluated by Psychiatry. The patient came in with diarrhea. The patient also has history of IBS. Diarrhea is three to four times a day, occasional loose according to her. There is no history of fever, rigors, chills. PAST MEDICAL HISTORY: Reviewed. History of IBS, depression, nicotine dependence, polysubstance abuse. MEDICATIONS: Trazodone. Dose and rest of medications reviewed. ALLERGIES: None. FAMILY HISTORY: No history of heart disease or strokes in the family. SOCIAL HISTORY: Alcohol heavy. THC. REVIEW OF SYSTEMS: Fourteen-point review of systems is negative except as mentioned earlier. PHYSICAL EXAMINATION: VITAL SIGNS: Pulse is 99, blood pressure 139/76, respirations 17. HEENT: Conjunctivae normal. NECK: No jugular venous distention. No carotid bruit. CARDIOVASCULAR: S1 and S2 muffled. RESPIRATION: Breath sounds diminished at the bases. ABDOMEN: Soft, nontender. LEGS: No edema. No swelling. NERVOUS SYSTEM: No focal deficit. LABS: Cholesterol 204. ASSESSMENT: 1. Depression with suicidal attempts. 2. Diarrhea, possibly irritable bowel syndrome exacerbation. 3. History of EtOH. 4. History of THC. 5. Polysubstance abuse. 6. Mild hyperlipidemia. 7. History of immunosuppression. 8. Hypokalemia. RECOMMENDATIONS: p.r.n. Imodium at this time. The patient is not getting better. Clostridium difficile may be checked. Otherwise, this caused minimally elevated cholesterol. Recommend low-cholesterol diet and closely follow with Primary Physician in the outpatient setting. We will follow the patient closely. MMODL / IJN: [id number] /
[2024-11-18 09:38] VITALS: RESP 16
--- NOTE | 2024-11-18 11:43 | P.PN ---
Progress Note - Text Progress Note Date: 11/18/24 Interval history: Patient was seen today wandering the hallways agreeable to speak to contract technical writer. She was seen participating in group. She appears to be more appropriate today during interactions she was pleasant, spoke about how she feels she is doing much better with regards to her mood and anxiety. Claims that she is hopeful to be discharged tomorrow, claims that she is grateful that she came to the hospital for treatment, likes the medications she is on at this time. Claims that she slept much better with the Remeron last night. States that she is going to groups participating in the milieu. Eating well, has been speaking her boyfriend over the phone. At this time she is denying any suicidal homicidal ideations intent or plan denying any auditory or visual hallucinations. Mental status exam: General Appearance: Patient appears to be has stated age is alert, directable, and cooperative. Behavior: No agitated behavior. Patient is calm and directable, more pleasant today Speech: Patient's speech is fluent and nonpressured. Mood/Affect: Mood is improving mildly, affect is congruent and constricted. Suicidality/Homicidality: Patient denies having any suicidal or homicidal ideation intent or plan. Perceptions: Patient denies any auditory or visual hallucinations. Though content/process: There is no evidence of any delusional thought content and thought process is linear and goal-directed. More future oriented Memory and concentration: AOX3, grossly intact for the purposes of this session Judgment and insight: improving mildly Assessment/Plan: Continue with current diagnosis. Patient continues to meet criteria for inpatient psychiatric admission for symptom stabilization and safety. Patient will be maintained on current psychotropic medication regimen, Monitor for medication compliance and for any psychotropic medication side effects. Will continue to monitor ongoing response to treatment. Encouraged participation in milieu. Hopeful for discharge tomorrow if patient is improving. At this time patient is declining rehab, wants to do outpatient fo llow-up and substance treatment through [facility].
[2024-11-18] MEDS: LORazepam 1 MG TAB PO PRN (17:22)
[2024-11-18] MEDS: MELATONIN 3 MG TABLET PO SCH (21:13)
[2024-11-19 08:41] VITALS: BP 144/64; PULSE 69; TEMP 97.8
--- NOTE | 2024-11-19 11:47 | P.DS ---
Providers Date of admission: 11/15/24 17:11 Expected date of discharge: 11/19/24 Attending physician: Chago Hanna MD Consults: 11/17/24 01:50 Consult Physician Routine Consulting Provider: [facility] Consult Reason/Comments: History and Physical, New Admission Do you want consulting provider notified?: Yes Primary care physician: Yahir Doan - Discharge Diagnosis(es) (1) Depressive disorder Current Visit: Yes Status: Acute Priority: High (2) Suicide attempt by other psychotropic drug overdose Current Visit: Yes Status: Acute Priority: High (3) Alcohol abuse Current Visit: Yes Status: Acute Priority: High (4) Cannabis use disorder Current Visit: Yes Status: Acute Priority: Medium (5) Nicotine dependence Current Visit: Yes Status: Acute Priority: Low Hospital Course: Admission HPI: Admission note was completed by [medical writer] "this patient is a 48-year-old Cauc female, she is currently engaged she lives with her fianc in a motel, she has 2 kids, she is unemployed. Patient was seen initially by medical writer for psychiatric consultation on 11/15 and as per note "the patient presented to the hospital initially on 11/14 after an intentional overdose. Patient apparently has a history of mental health and also previous suicide attempts. Patient apparently told staff that she took a handful of her hydroxyzine and Toradol and also was drinking alcohol. Patient's urine drug screen is positive for THC, blood alcohol level was 21. Patient was seen at the bedside today she had a one-to-one sitter. She claims that she apparently "had too much to drink" and states that she was feeling drunk. Claims that she took a handful of her anxiety medications and was not "paying attention". Claims that she is also drinking about a pint of liquor at that time. She claims that her boyfriend was concerned about her and called the EMS to bring her to the hospital. She claims that she has been having more stress lately dealing with the cashier courtesy booth for custody issues and also the fact that she is homeless. Claims that she relapsed on alcohol a couple of days ago, not reporting any significant withdrawal symptoms at this time. She was minimizing the suicide attempt and minimizing her need for psychiatric hospitalization, was insisting that she be d ischarged back home. At this time patient denies any current suicidal or homical ideations, intent or plan. Patient denies any auditory, visual hallucinations and denies any paranoia or delusions. Patients admits to using alcohol as noted above, claims that she smokes THC from a vape, also smokes cigarettes." Patient was seen today for psychiatric evaluation on the unit. Patient continues to be fairly pleasant with medical writer, explains that it was a bad situation as she put herself into and he could have been deadly. Explains that she is agreeable to continuing with treatment signed voluntary. Claims that her mood and anxiety been improving since being on the unit, denying any severe withdrawal symptoms at this time. She was agreeable to try Zoloft and was previously on trazodone which has helped her. Claims that her sleep and appetite are on and off. At this time is denying any suicidal homicidal ideations intent or plan denying any auditory or visual hallucinations. The rest of the past psychiatric and social history been taking from the consultation note." Hospital course: Upon admission to the unit patient was directable and agreeable to commence treatment and signed adult voluntary form. Patient was initially depressed, anxious, however with time and treatment patient got along well with other patients on the unit and followed unit protocol. Patient was compliant with the medications and denied any side effects throughout hospital course. Patient was started on zoloft 50 mg daily for mood/anxiety, remeron 15 mg qhs for mood/insomnia, melatonin qhs for sleep. Patient spoke of her stressors and engaged in therapy both group/activity therapy. Patient was also seen by medical team for history and physical exam. Throughout the course of the hospitalization patient gradually improved with regards to mood, anxiety, sleep and became more future oriented with improved insight and judgment. On the day of discharge patient denied any suicidal or homicidal ideations intent or plan denied any auditory or visual hallucinations. Patient endorsed wanting to live for their health and family and her future. The patient denied any access to guns or weapons. Patient denied any paranoia and did not endorse any delusions. Patient does have a significant history of substance abuse and was counseled on abstaining from all substances including alcohol and marijuana. Patient was offered however declined inpatient substance-abuse rehab. Patient elected to do outpatient substance use treatment program through their outpatient provider. Patient was also also offered anticraving medications for alcohol use however declined at this time. Patient was also counseled on the medications and need for regular compliance and was encouraged to follow-up with their outpatient appointment for mental health and also for primary care. Prior to discharge a family meeting will be arranged by healthcare social worker to answer any questions and ensure safety upon discharge incuding making sure that guns/weapons are either removed from the home or locked away. Mental status exam: General Appearance: Patient appears to be stated age is alert, pleasant, and cooperative. Patient is in no acute distress and has improved hygiene and grooming Behavior: Patient is calmly seated without any agitated behavior. Speech: Patient's speech is fluent and nonpressured. Mood/Affect: Patient reports their mood is "good", affect is congruent and euthymic. Suicidality/Homicidality: Patient denies having any suicidal or homicidal ideation intent or plan. Perceptions: Patient denies any auditory or visual hallucinations. Though content/process: There is no evidence of any delusional thought content and thought process is linear and goal-directed. More future oriented Memory and concentration: AOX3, grossly intact for the purposes of this session. Can spell "WORLD" backwards correctly. Judgment and insight: improved with guarded prognosis Impression: Depressive disorder unspecified suicide attempt by psychotropic drug overdose alcohol abuse cannabis use disorder Nicotine dependence Plan: -Continue with discharge today as patient has improved and stabilized psychiatrically and is not currently an imminent threat to themself and/or others. Patient will remain at chronically elevated risk for harm to self and/or others due to their substance abuse. -Continue medications: Remeron 15 mg nightly for mood/insomnia, Zoloft 50 mg daily for mood/anxiety, melatonin nightly for sleep -Patient was counseled on the need for medication compliance and appropriate follow-up at mental health and also primary care for medical issues. Patient verbalized understanding and agreed. -Social work to help coordinate patients discharge today. also to ensure safe home environment that guns/weapons are either removed from the home or locked away. Social work also to arrange for patients follow up appointments with [facility] for psychiatric care along with follow up with primary care provider. -Patient counseled on abstaining from recreational drugs and marijuana and alcohol. Was informed/educated on the adverse effects on their physical and mental health. Patient verbally agreed and understood. Patient was offered substance abuse treatment however declined at this time. -Patient was instructed to return to the hospital or seek immediate medical care if their psychiatric or medical symptoms do worsen or reoccur. Allergies Allergy/AdvReac Type Severity Reaction Status Date / Time No Known Allergies Allergy Verified 11/15/24 18:13 Laboratory Results WBC 8.48 10*3/uL (4.50-10.00) 11/17/24 15:21 RBC 4.20 10*6/uL (4.10-5.20) 11/17/24 15:21 Hgb 13.8 g/dL (12.0-15.0) 11/17/24 15:21 Hct 40.0 % (37.2-46.3) 11/17/24 15:21 MCV 95.2 fL (80.0-97.0) 11/17/24 15:21 MCH 32.9 pg (27.0-32.0) H 11/17/24 15:21 MCHC 34.5 g/dL (32.0-37.0) 11/17/24 15:21 Plt Count 357 10*3/uL (140-440) 11/17/24 15:21 MPV 9.2 fL (9.5-12.2) L 11/17/24 15:21 Immature Gran % (Auto) 0.2 % 11/17/24 15:21 Neutrophils % 57.9 % 11/17/24 15:21 Lymphocytes % 31.7 % 11/17/24 15:21 Monocytes % 7.7 % 11/17/24 15:21 Eosinophils % 1.8 % 11/17/24 15:21 Basophils % 0.7 % 11/17/24 15:21 Immature Gran # 0.02 10*3/uL (0.00-0.04) 11/17/24 15:21 Neutrophils # 4.91 10*3/uL (1.80-7.70) 11/17/24 15:21 Lymphocytes # 2.69 10*3/uL (0.90-5.00) 11/17/24 15:21 Monocytes # 0.65 10*3/uL (0.20-1.00) 11/17/24 15:21 Eosinophils # 0.15 10*3/uL (0.04-0.35) 11/17/24 15:21 Basophils # 0.06 10*3/uL (0.00-0.10) 11/17/24 15:21 Sodium 137 mmol/L (137-145) 11/17/24 15:21 Potassium 4.4 mmol/L (3.5-5.1) 11/17/24 15:21 Chloride 104 mmol/L (98-107) 11/17/24 15:21 Carbon Dioxide 26 mmol/L (22-30) 11/17/24 15:21 Anion Gap 7 mmol/L 11/17/24 15:21 BUN 12 mg/dL (7-17) 11/17/24 15:21 Creatinine 0.69 mg/dL (0.52-1.04) 11/17/24 15:21 Est GFR (CKD-EPI)AfAm >90 (>60 ml/min/1.73 sqM) 11/17/24 15:21 Est GFR (CKD-EPI)NonAf >90 (>60 ml/min/1.73 sqM) 11/17/24 15:21 Glucose 138 mg/dL (74-99) H 11/17/24 15:21 POC Glucose (mg/dL) 128 mg/dL (70-110) H 11/17/24 02:49 POC Glu [employer] ID Josue Ott 11/17/24 02:[address] Glu mg/dL 126 mg/dL 11/16/24 12:00 Hemoglobin A1c 6.0 % (<=6.0) 11/16/24 12:00 Calcium 9.7 mg/dL (8.4-10.2) 11/17/24 15:21 Triglycerides 259.00 mg/dL (0.00-149.00) H 11/16/24 12:00 Cholesterol 204.00 mg/dL (0.00-200.00) H 11/16/24 12:00 LDL Cholesterol, Calc 101.2 mg/dL (0.0-131.0) 11/16/24 12:00 VLDL Cholesterol, Calc 51.80 mg/dL (5.00-40.00) H 11/16/24 12:00 HDL Cholesterol 51.00 mg/dL (40.00-60.00) 11/16/24 12:00 Cholesterol/HDL Ratio 4.00 Ratio 11/16/24 12:00 TSH 0.662 mIU/L (0.465-4.680) 11/16/24 12:00 Vital Signs Temp 97.8 F 11/19/24 08:40 Pulse 69 11/19/24 08:40 Resp 16 11/18/24 20:17 BP 144/64 11/19/24 08:40 Pulse Ox 100 11/19/24 08:40 FiO2 Patient Condition at Discharge: Stable Plan - Discharge Summary Discharge Rx Participant: No New Discharge Prescriptions: New Melatonin 5 mg PO HS 30 Days #30 tab Nicotine Gum (Polacrilex) [Nicorette] 2 mg BUCCAL Q4HR PRN 30 Days #180 pieceofgum PRN Reason: Nicotine Cravings Mirtazapine [Remeron] 15 mg PO HS 30 Days #30 tab Thiamine [Vitamin B-1] 100 mg PO DAILY tab Folic Acid 1 mg PO DAILY tab Nicotine 14Mg/24Hr Patch [Habitrol] 1 patch TRANSDERM DAILY 14 Days #14 patch Sertraline [Zoloft] 50 mg PO DAILY 30 Days #30 tab Continue Atorvastatin [Lipitor] 20 mg PO DAILY Multivit with Calcium,Iron,Min [Women's Multivitamin] 1 tab PO DAILY Discontinued traZODone HCL 100 mg PO HS PRN PRN Reason: Insomnia Sertraline [Zoloft] 50 mg PO DAILY Discharge Medication List Atorvastatin [Lipitor] 20 mg PO DAILY 11/15/24 [History] Multivit with Calcium,Iron,Min [Women's Multivitamin] 1 tab PO DAILY 11/15/24 [History] Folic Acid 1 mg PO DAILY tab 11/19/24 [Rx] Melatonin 5 mg PO HS 30 Days #30 tab 11/19/24 [Rx] Mirtazapine [Remeron] 15 mg PO HS 30 Days #30 tab 11/19/24 [Rx] Nicotine 14Mg/24Hr Patch [Habitrol] 1 patch TRANSDERM DAILY 14 Days #14 patch 11/19/24 [Rx] Nicotine Gum (Polacrilex) [Nicorette] 2 mg BUCCAL Q4HR PRN 30 Days #180 pieceofgum 11/19/24 [Rx] Sertraline [Zoloft] 50 mg PO DAILY 30 Days #30 tab 11/19/24 [Rx] Thiamine [Vitamin B-1] 100 mg PO DAILY tab 11/19/24 [Rx] Follow up Appointment(s)/Referral(s): Yahir Doan [Primary Care Provider] - 1 Week Patient Instructions/Handouts: How to Stop Smoking (DC), Depression (DC), Abuse of Alcohol (DC) Activity/Diet/Wound Care/Special Instructions: Avoid the use of street drugs and alcohol. Take all medications as prescribed. When you are in need of refills on your medications, please contact your medical provider and/or outpatient psychiatrist/provider to have this done. Please go to your scheduled outpatient appointment for aftercare treatment. If symptoms return or become worse, call the crisis line at and/or go to the nearest emergency room for evaluation. National Suicide Hotline [address] [facility] confidentiality statement: "The information contained in this communication, including attachments, is confidential, may be privileged, and is intended only for the use of the named recipient(s). Unauthorized use, disclosure, forwarding or copying is strictly prohibited and may be unlawful. If you have received this communication in error, please notify me IMMEDIATELY at the phone number or pager listed above. Discharge/Stand Alone Forms: MATIAS Prado Discharge Disposition: HOME SELF-CARE
== END 2024-11-19 12:22 | disposition home or self-care (01) | DRG 817 ==
LOC: 3MHU 17:11
PROVIDERS: ADMIT Psychiatry & Neurology Psychiatry; ATTEND Psychiatry & Neurology Psychiatry
DX: T50.902A Poisoning by unspecified drugs, medicaments and biological substances, intentional self-harm, initial encounter (principal); Z59.01 Sheltered homelessness; D84.9 Immunodeficiency, unspecified; F19.10 Other psychoactive substance abuse, uncomplicated; F10.10 Alcohol abuse, uncomplicated; F12.10 Cannabis abuse, uncomplicated; F32.A Depression, unspecified; F17.210 Nicotine dependence, cigarettes, uncomplicated; F41.9 Anxiety disorder, unspecified; G47.00 Insomnia, unspecified; E78.5 Hyperlipidemia, unspecified; E87.6 Hypokalemia; K58.0 Irritable bowel syndrome with diarrhea; Y90.1 Blood alcohol level of 20-39 mg/100 ml; Z56.0 Unemployment, unspecified; Z91.51 Personal history of suicidal behavior; Z79.899 Other long term (current) drug therapy
CPT/HCPCS: 80048; 80061; 83036; 84443; 85025